=== PATIENT | female | born 1955 | race Caucasian/White ===

== ENCOUNTER 2021-03-30 09:41 | Emergency (ER) | payer MEDICARE, OTHER ==
[~2021-03-30] VITALS: Ht 167.6 cm; Wt 93.9 kg
--- NOTE | 2021-03-30 09:50 | NUR ---
the patient bibra 89 from home c/o chest pain/sob x 1 week. respiration regular with episodes of labored breathing. on room air o2 saturation 98%. denies chest pain but complains tightness of the left side of the head travelling to the neck and to the chest. Dr. Pang aware. a/o x4. attached to the monitor. warm blanket provided. will continue to monitor.
--- NOTE | 2021-03-30 10:05 | NUR ---
blood specimen collected and sent to the lab
[2021-03-30] MEDS ORDERED: LORAZEPAM INJ 2 MG/ML VIAL ONE (10:18)
[2021-03-30 10:29] LABS: BASOPHILS % (AUTO) 0.6 % (0.0-2.0); EOSINOPHILS % (AUTO) 2.2 % (0.0-6.0); HEMATOCRIT 41 % (33-45); HEMOGLOBIN 13.8 g/dL (11.5-14.8); LYMPHOCYTES # (AUTO) 1.4 /CMM (0.8-4.8); LYMPHOCYTES % (AUTO) 16.9 % (20.0-44.0); MEAN CORPUSCULAR HGB CONC 34 g/dl (31.0-36.0); MEAN CORPUSCULAR VOLUME 87 fL (82-100); MONOCYTES # (AUTO) 0.4 /CMM (0.1-1.30); MONOCYTES % (AUTO) 5.2 % (2.0-12.0); NEUTROPHILS % (AUTO) 75.1 % (43.0-81.0); PLATELET COUNT (AUTO) 295 /CMM (150-450); RED BLOOD CELL COUNT(AUTO) 4.72 MIL/uL (4.0-5.2)
[2021-03-30] MEDS ORDERED: IV NS 0.9% 500 ML BAG IV ONE (10:30)
[2021-03-30] MEDS ORDERED: LORAZEPAM INJ 2 MG/ML VIAL IV ONE (10:30)
[2021-03-30 10:39] LABS: CARBON DIOXIDE 23 mmol/L (21-32); CHLORIDE 101 mmol/L (98-107); CREATININE 0.8 mg/dL (0.6-1.3); GLUCOSE 131 mg/dL (74-106); POTASSIUM 3.7 mmol/L (3.5-5.1); SODIUM SERUM 139 mmol/L (136-145); UREA NITROGEN, BLOOD 15 mg/dL (7-18)
[2021-03-30 10:52] LABS: ALANINE AMINOTRANSFERASE 38 U/L (12-78); ALBUMIN 3.9 g/dL (3.4-5.0); ALKALINE PHOSPHATASE 75 U/L (46-116); ASPARTATE AMINOTRANSFERASE 22 U/L (15-37); B-TYPE NATRIURETIC PEPTIDE 47 PG/ML (0-125); BILIRUBIN,DIRECT 0.1 mg/dL (0.0-0.2); BILIRUBIN,TOTAL 0.4 mg/dL (0.2-1.0); TOTAL PROTEIN, SERUM 7.7 g/dL (6.4-8.2)
[2021-03-30] MEDS ORDERED: EVOL140P3 SQ (10:53)
[2021-03-30] MEDS ORDERED: LOSA50TA39 PO (10:53)
[2021-03-30] MEDS ORDERED: METO50TA16 PO (10:53)
[2021-03-30] MEDS ORDERED: IBUP-1953 PO (10:53)
[2021-03-30] MEDS ORDERED: ACET-285 PO (10:53)
[2021-03-30] MEDS ORDERED: ESCI10TA PO (10:53)
[2021-03-30] MEDS ORDERED: ALBU18HF2 INH (10:53)
[2021-03-30] MEDS ORDERED: PANT40TA49 PO (10:53)
[2021-03-30] MEDS ORDERED: GABA-532 PO (10:53)
[2021-03-30] MEDS ORDERED: IOHEXOL-300 100 ML VIAL IV ONE ×2 (10:56→10:58)
[2021-03-30] MEDS ORDERED: IV NS 0.9% 250 ML IV ONE ×2 (10:56→10:58)
[2021-03-30] MEDS ORDERED: CT SWABBABLE VALVE TRANS SET 1 EA INFUS.SET MC ONE (10:58)
--- NOTE | 2021-03-30 11:14 | NUR ---
patient is in ct
--- NOTE | 2021-03-30 11:23 | NUR ---
patient is back from ct in stable condition. will continue to monitor the patient.
--- NOTE | 2021-03-30 11:44 | NUR ---
the patient is alert and oriented x4. denies sob. respiration regular and unlabored. will continue to monitor the patient.
--- NOTE | 2021-03-30 13:28 | NUR ---
Stat troponin ordered by Dr Pang. Noted and carried out.
--- NOTE | 2021-03-30 14:34 | NUR ---
Patient discharged to home in stable condition. Written and verbal after care instructions given. Patient verbalizes understanding of instruction. patient went home in stable condition.
[2021-03-30 14:36] VITALS: BP 125/76
== END 2021-03-30 14:38 | disposition home or self-care (01) ==
LOC: ER 09:49
DX: R07.89 Other chest pain (principal); R06.00 Dyspnea, unspecified; J90 Pleural effusion, not elsewhere classified; I10 Essential (primary) hypertension; Z79.899 Other long term (current) drug therapy
CPT/HCPCS: 36415; 70491; 71045; 80048; 80076; 83880; 84484 ×2; 85025; 85378; 93005; 96374; 99285; J2060; J7040; J7050 ×2; Q9967 ×2